=== PATIENT | female | born 1995 | race African-American/Black ===

== ENCOUNTER 2017-10-30 12:41 | Emergency (ER) | payer OTHER ==
[~2017-10-30] VITALS: Ht 172.7 cm; Wt 88.9 kg
[~2017-10-30 12:41] MED LIST: AMOXICILLIN500 MG PO; BENADRYL50 MG PO; DOCUSATE SODIU100 MG PO; K-DUR20 MEQ PO; MACROBID100 MG PO; METRONIDAZOLE500 MG PO; MICRONOR0.35 MG PO; NOHOMEMEDS; PHENERGAN25 MG PR; PREDNISONE10 MG PO; TESSALON200 MG PO; ZANTAC150 MG PO; ZOFRAN ODT4 MG PO; ZOFRAN ODT8 MG PO; ZOFRAN8 MG PO
[2017-10-30 13:36] LABS: HEMATOCRIT 38.7 % (36.0-46.0); MCH 26.9 PG (29.0-34.0); MCHC 34.1 G/DL (30.0-36.0); MEAN PLAT.VOLUME 9.8 uM^3 (9.5-12.4); PLATELET COUNT 281 K/uL (156-360); RBC DIS.WIDTH-CV 17.6 % (11.8-14.6); RBC DIS.WIDTH-SD 50.9 % (39-53); WHITE BLOOD COUNT 8.3 K/uL (4.1-10.2)
[2017-10-30 13:45] LABS: CHLORIDE 103 mEq/L (99-109); SODIUM 134 mEq/L (136-147)
[2017-10-30 13:47] LABS: GLUCOSE 146 mg/dL (70-99)
[2017-10-30 13:48] LABS: ANION GAP 11 MEQ/L (2-14)
[2017-10-30 13:51] LABS: GFR ESTIMATE (CALCULATED) > 59 mL/min/; UREA NITROGEN (BUN) 8 mg/dL (9-23)
[2017-10-30 14:21] LABS: QUANTITATIVE HCG 93546.8 MIU/ML
[2017-10-30 14:45] LABS: ADD MIUA? YES; BILIRUBIN NEGATIVE; BLOOD NEGATIVE; COLOR YELLOW ((YELLOW)); GLUCOSE (STRIP) 50; KETONES 80; LEUKOCYTES NEGATIVE; NITRITE NEGATIVE; PROTEIN (STRIP) >=500; SPECIFIC GRAVITY 1.037 (1.000-1.030); UROBILINOGEN 0.2 MG/DL (0.2-1.0)
[2017-10-30 14:53] LABS: BACTERIA RARE /HPF; EPITHELIAL CELLS 1+ /HPF; MUCUS 1+ /LPF; UCUL ADDED? YES
[2017-10-30] MEDS ORDERED: ZOFRAN ODT4 MG PO (16:27)
[2017-10-30 16:41] VITALS: BP 128/79
== END 2017-10-30 16:42 | disposition home or self-care (01) ==
LOC: EME 12:41
PROVIDERS: Physician Assistant
DX: O21.0 Mild hyperemesis gravidarum (principal); Z3A.10 10 weeks gestation of pregnancy; O99.341 Other mental disorders complicating pregnancy, first trimester; F41.9 Anxiety disorder, unspecified; Z87.891 Personal history of nicotine dependence
CPT/HCPCS: 76801; 80048; 81003; 84702; 85027; 87086; 99281; 99284; J2405; J7030